=== PATIENT | female | born 1970 | race Caucasian/White ===

== ENCOUNTER 2024-04-28 15:44 | Emergency (ER) | payer MEDICAID ==
[~2024-04-28] VITALS: Ht 162.6 cm; Wt 53.1 kg
[2024-04-28 15:59] VITALS: BP 119/74; PULSE 78; RESP 16; TEMP 36.9; O2SAT 100
[2024-04-28] MEDS: ONDANSETRON HCL 4MG/2ML INJ IV STA (16:10)
[2024-04-28 16:53] LABS: BASOPHILS % 0.4 % (0.0-2.0); EOSINOPHILS % 0.4 % (0.0-5.0); HEMATOCRIT. 37.7 % (36.0-48.0); HEMOGLOBIN. 12.1 g/dL (12.0-16.0); LYMPHOCYTES % 14.6 % (20.0-50.0); MEAN CORPUSCULAR HEMOGLOBIN 28.5 pg (28.0-32.0); MEAN CORPUSCULAR HGB CONC 32.1 g/dL (31.0-37.0); MEAN CORPUSCULAR VOLUME 88.7 fL (81.0-99.0); MEAN PLATELET VOLUME 8.7 fl (7.4-10.4); MONOCYTES % 6.8 % (2.0-8.0); NEUTROPHILS % 77.8 % (40.0-76.0); PLATELET 283 x1000/uL (130-400); RED BLOOD CELL COUNT 4.25 mill/uL (4.2-5.4); WHITE BLOOD COUNT 8.6 x1000/uL (4.5-11.0)
[2024-04-28 17:04] LABS: CHLORIDE 102 mEq/L (98-107); INR 0.9; POTASSIUM 3.7 mEq/L (3.5-5.1); PROTHROMBIN TIME 10.1 sec (9.6-11.0); SODIUM 138 mEq/L (136-145)
[2024-04-28 17:05] LABS: CALCIUM 8.8 mg/dL (8.7-10.4); CARBON DIOXIDE 28 mEq/L (21-32)
[2024-04-28 17:10] LABS: CREATININE 0.6 mg/dL (0.6-1.0); GLUCOSE 233 mg/dL (70-105); UREA NITROGEN BLOOD 18 mg/dL (9-23)
[2024-04-28 17:15] LABS: ETHANOL BLOOD < 10 mg/dL (<10); TROPONIN I HIGH SENSITIVITY < 4 ng/L (3.0-34)
== END 2024-04-28 18:12 | disposition left against medical advice (07) ==
LOC: EDBD 15:44 → ER 16:06
DX: E11.649 Type 2 diabetes mellitus with hypoglycemia without coma (principal); R41.82 Altered mental status, unspecified; Z88.5 Allergy status to narcotic agent
CPT/HCPCS: 36415; 71045; 80048; 80320; 82962; 84484; 85025; 93005; 99291; G0480